=== PATIENT | male | born 1930 | race Caucasian/White ===

== ENCOUNTER 2018-06-12 14:00 | Inpatient (IN) | payer MEDICARE ==
[~2018-06-12] VITALS: Ht 167.6 cm; Wt 88.0 kg
[2018-06-12 16:28] VITALS: BP 140/60
[2018-06-12 16:41] LABS: APPEARANCE,URINE Clear (CLEAR); BILIRUBIN,URINE Negative (NEGATIVE); COLOR,URINE Dark Yellow (YELLOW); GLUCOSE, URINE (UA) Negative (NEGATIVE); KETONES,URINE Negative (NEGATIVE); LEUKOCYTE ESTERASE ,URINE Negative (NEGATIVE); NITRATE,URINE Negative (NEGATIVE); OCCULT BLOOD,URINE Negative (NEGATIVE); PROTEIN,URINE Negative (NEGATIVE); UROBILINOGEN,URINE 0.2 mg/dL (0.2-1.0)
[2018-06-12 16:52] LABS: CREATININE 1.5 mg/dL (0.5-1.5); POTASSIUM 4.2 mmol/L (3.5-5.1)
[2018-06-12] MEDS ORDERED: METO-391 PO (17:09)
[2018-06-12] MEDS ORDERED: LEVO75TA10 PO (17:09)
[2018-06-12] MEDS ORDERED: FAMO20TA8 PO (17:09)
[2018-06-12] MEDS ORDERED: AMIL1TAB2 PO (17:09)
[2018-06-12] MEDS ORDERED: ATOR10TA69 PO (17:09)
[2018-06-12] MEDS ORDERED: CELE200 PO (17:09)
[2018-06-12] MEDS ORDERED: RAMI10CA69 PO (17:09)
[2018-06-15] VITALS (22 sets, daily range): BP systolic 103–136; BP diastolic 49–71
[2018-06-15] MEDS ORDERED: LACTATED RINGERS 1000ML 1,000 ML IV ONE (08:00)
[2018-06-15] MEDS ORDERED: TRANEXAMIC ACID 1000MG/10ML IV ONE (08:11)
[2018-06-15] MEDS ORDERED: CEFAZOLIN SODIUM 1 GM VIAL ONE ×2 (08:16→12:22)
[2018-06-15] MEDS ORDERED: ACETAMINOPHEN EXTRA STRENGTH 500 MG TABLET ONE (08:31)
[2018-06-15] MEDS ORDERED: CELECOXIB 200 MG CAP ONE (08:32)
[2018-06-15] MEDS ORDERED: OXYCODONE HCL 10 MG TAB.SR.12H PO ONE (08:32)
[2018-06-15] MEDS ORDERED: KETOROLAC TROMETHAMINE 15MG/ML ONE (08:32)
[2018-06-15] MEDS: CEFAZOLIN SODIUM 1 GM VIAL ONE ×2 (08:43→10:31)
[2018-06-15] MEDS ORDERED: PROPOFOL 10 MG/ML 20ML VIAL IV ONE (09:14)
[2018-06-15] MEDS ORDERED: LIDOCAINE PF 2% 5ML ABBOJECT ONE (09:14)
[2018-06-15] MEDS ORDERED: MIDAZOLAM HCL 1 MG/ML 2ML VIAL ONE (10:23)
[2018-06-15] MEDS ORDERED: EPHEDRINE SULFATE 50 MG/ML AMPULE ONE (10:31)
[2018-06-15] MEDS ORDERED: FENTANYL CITRATE PF 50 MCG/1 ML 2ML VIAL ONE ×2 (10:46→12:35)
[2018-06-15] MEDS ORDERED: BUPIVACAINE/EPI/PF 0.25% 30ML VIAL IJ ONE (10:51)
[2018-06-15] MEDS: SODIUM CHLORIDE 0.9% 1000ML 1,000 ML IV SCH ×3 (12:36→23:24)
[2018-06-15] MEDS ORDERED: TRAMADOL HCL 50 MG TABLET PO PRN (12:45)
[2018-06-15] MEDS ORDERED: POTASSIUM CHLORIDE 20 MEQ ERTAB PO PRN (12:45)
[2018-06-15] MEDS ORDERED: TEMAZEPAM 15 MG CAPSULE PO PRN (12:45)
[2018-06-15] MEDS ORDERED: FERROUS FUMARATE 324 MG TABLET PO PRN (12:45)
[2018-06-15] MEDS ORDERED: POTASSIUM CHLORIDE 20MEQ/100ML 100 ML IV PRN (12:45)
[2018-06-15] MEDS: ACETAMINOPHEN EXTRA STRENGTH 500 MG TABLET PO SCH ×2 (12:45→20:29)
[2018-06-15] MEDS ORDERED: ONDANSETRON HCL 4 MG/2 ML VIAL IVP PRN (12:45)
[2018-06-15] MEDS ORDERED: POTASSIUM CHLORIDE 10% ELIXIR 20 MEQ/15 ML UDCUP PO PRN (12:45)
[2018-06-15] MEDS ORDERED: DiphenhydrAMINE HCL 50 MG/ML VIAL IVP PRN (12:45)
[2018-06-15] MEDS ORDERED: LIDOCAINE HCL-MPF 1% 2ML VIAL IVP PRN (12:45)
[2018-06-15] MEDS ORDERED: KETOROLAC TROMETHAMINE 15MG/ML IV PRN (12:45)
[2018-06-15] MEDS ORDERED: CALCIUM CARBONATE 500 MG TABLET PO PRN (12:45)
[2018-06-15] MEDS: OXYCODONE HCL 5 MG TAB PO PRN ×3 (14:37→20:32)
[2018-06-15] MEDS: CEFAZOLIN SODIUM 1 GM VIAL IVP SCH (18:30)
[2018-06-15] MEDS: METOPROLOL TARTRATE 50 MG TAB PO SCH (20:29)
[2018-06-15] MEDS: PREGABALIN 25 MG CAP PO SCH (20:29)
[2018-06-15] MEDS: ASPIRIN 325 MG TABLET PO SCH (20:29)
[2018-06-15] MEDS: ATORVASTATIN CALCIUM 10 MG TABLET PO SCH (20:29)
[2018-06-15] MEDS: CELECOXIB 200 MG CAP PO SCH (20:29)
[2018-06-15] MEDS ORDERED: FAMOTIDINE 20MG TAB 20 MG TAB PO SCH ×2 (21:00)
[2018-06-15] MEDS ORDERED: ATORVASTATIN CALCIUM 10 MG TABLET PO SCH (21:00)
[2018-06-15] MEDS ORDERED: NON-FORMULARY MEDICATION 1 EACH (Metoprolol Succinate 50 MG) PO SCH (21:00)
[2018-06-16] MEDS: CEFAZOLIN SODIUM 1 GM VIAL IVP SCH (01:08)
[2018-06-16] MEDS: ACETAMINOPHEN EXTRA STRENGTH 500 MG TABLET PO SCH ×3 (03:26→20:03)
[2018-06-16 04:14] VITALS: BP 120/59
[2018-06-16] MEDS: OXYCODONE HCL 5 MG TAB PO PRN ×5 (04:31→23:56)
[2018-06-16 04:42] LABS: HEMATOCRIT 34.8 % (42-54); MEAN CORPUSCULAR HEMOGLOBIN 31.2 pg (27.0-33.0); MEAN CORPUSCULAR HGB CONC 33.2 g/dL (32.0-36.0); MEAN CORPUSCULAR VOLUME 94.1 fL (79-99); PLATELET COUNT (AUTO) 121 K/uL (130-400); WHITE BLOOD COUNT (AUTO) 8.4 K/uL (4.8-10.8)
[2018-06-16 04:53] LABS: CREATININE 1.6 mg/dL (0.5-1.5); POTASSIUM 4.1 mmol/L (3.5-5.1)
[2018-06-16] MEDS: LEVOTHYROXINE 75 MCG TABLET PO SCH (05:41)
[2018-06-16 07:55] VITALS: BP 117/73
[2018-06-16] MEDS: SODIUM CHLORIDE 0.9% 1000ML 1,000 ML IV SCH (08:36)
[2018-06-16] MEDS: [UNRECOGNIZED DRUG - OTHER] PO SCH (09:00)
[2018-06-16] MEDS: Ramipril 10 MG PO SCH (09:00)
[2018-06-16] MEDS: ASPIRIN 325 MG TABLET PO SCH ×2 (09:10→20:03)
[2018-06-16] MEDS: CELECOXIB 200 MG CAP PO SCH ×2 (09:10→20:03)
[2018-06-16] MEDS: TAMSULOSIN HCL 0.4 MG CAP.ER.24H PO SCH (09:10)
[2018-06-16] MEDS: METOPROLOL TARTRATE 50 MG TAB PO SCH ×2 (09:11→20:03)
[2018-06-16] MEDS: PREGABALIN 25 MG CAP PO SCH ×2 (09:12→20:03)
[2018-06-16] MEDS: FAMOTIDINE 20MG TAB 20 MG TAB PO SCH (09:12)
[2018-06-16] MEDS: POLYETHYLENE GLYCOL 3350 17 GM POWD.PACK PO SCH (09:12)
[2018-06-16 12:00] VITALS: BP 120/72
[2018-06-16 15:43] VITALS: BP 136/74
[2018-06-16] MEDS: ATORVASTATIN CALCIUM 10 MG TABLET PO SCH (20:03)
[2018-06-16 20:12] VITALS: BP 135/63
[2018-06-17 00:12] VITALS: BP 112/56
[2018-06-17] MEDS: OXYCODONE HCL 5 MG TAB PO PRN ×3 (04:33→14:03)
[2018-06-17] MEDS: ACETAMINOPHEN EXTRA STRENGTH 500 MG TABLET PO SCH ×2 (04:33→14:01)
[2018-06-17 04:38] VITALS: BP 116/58
[2018-06-17] MEDS: LEVOTHYROXINE 75 MCG TABLET PO SCH (06:12)
[2018-06-17 08:13] VITALS: BP 121/58
[2018-06-17] MEDS: POLYETHYLENE GLYCOL 3350 17 GM POWD.PACK PO SCH (08:31)
[2018-06-17] MEDS: CELECOXIB 200 MG CAP PO SCH (08:32)
[2018-06-17] MEDS: ASPIRIN 325 MG TABLET PO SCH (08:32)
[2018-06-17] MEDS: METOPROLOL TARTRATE 50 MG TAB PO SCH (08:32)
[2018-06-17] MEDS: FAMOTIDINE 20MG TAB 20 MG TAB PO SCH (08:32)
[2018-06-17] MEDS: TAMSULOSIN HCL 0.4 MG CAP.ER.24H PO SCH (08:32)
[2018-06-17] MEDS: PREGABALIN 25 MG CAP PO SCH (08:32)
[2018-06-17] MEDS: Ramipril 10 MG PO SCH (09:00)
[2018-06-17] MEDS: [UNRECOGNIZED DRUG - OTHER] PO SCH (09:00)
[2018-06-17] MEDS ORDERED: ASPI-1012 PO (11:03)
[2018-06-17] MEDS ORDERED: HYDR-4457 PO (11:03)
[2018-06-17 11:29] VITALS: BP 100/46
[2018-06-18] MEDS ORDERED: BISACODYL 10 MG SUPP.RECT RC PRN (12:45)
== END 2018-06-17 16:55 | disposition home health service (06) | DRG 470 ==
LOC: EDSTATUS 14:00 → DAHIP 06-15 07:14 → 4AH 06-15 13:50
PROVIDERS: ADMIT Orthopaedic Surgery; ATTEND Orthopaedic Surgery
PROC: 0SRC0J9 Replacement of Right Knee Joint with Synthetic Substitute, Cemented, Open Approach (ICD-10-PCS; principal; 2018-06-15 10:21)
DX: M17.11 Unilateral primary osteoarthritis, right knee (principal); I10 Essential (primary) hypertension; E03.9 Hypothyroidism, unspecified; G89.29 Other chronic pain
CPT/HCPCS: 36415; 80048; 81003; 85027; 88305; 88311; 96374; J0690; J1885; J2001; J2250; J2704; J3010; J3490; J7030; J7120